=== PATIENT | female | born 1980 | race Caucasian/White ===

== ENCOUNTER 2017-01-01 02:59 | Emergency (ER) | payer OTHER ==
--- NOTE | 2017-01-01 07:52 | ED.REPORT ---
HPI-General Illness Date of Service Jan 01, 2017 ED Provider: Rich Mcfarland MD History of Present Illness: Patient is a 36 y.o. F with past medical history of methamphatamine abuse, alcohol abuse, reported bipolar disorder. She presents to ED with active methamphetamine intoxication, alcohol intoxication stating that she needs to detox. Patient stated that she is not from the area but has family in [place] whom she has been staying with, but currently lives with "two hollis guys." Patient said that she has "no family support, they are all trailer trash, I am trailer trash, I can't get clean because I have no support, I have called around everywhere and no one gives me a bed, the only people who get beds are the heroine junkies who have kids, all I have are my cats but I don't even have them here." Patient stated that her last use of meth was two hours prior to arrival at the ED and her last drink was at "last call." Patient reported that she has been drinking since the age of 16 and she currently drink 1 pint of hard alcohol every three to four days. Patient when on to state that "I am always like this, even when I am sober, I am an asshole, I just want a fucking bed and no one will give it to me, I don't want to go to the [facility] [facility], I dont want to kill my self or hurt anyone else, I just want to get clean or else I feel like I will get murdered, I have good intuition and I know that I will get murdered." Patient reports assocaited symptoms of anxiety, tremors, headache. Patient denies fever, chills, nausea, vomiting, palpatation, shortness of breath, auditory hallucination, visual hallucionations, IV drug use. Nursing Notes Stated Complaint: DETOX Nursing Notes Reviewed: Yes Allergies: Coded Allergies: No Known Allergies (Unverified , 01/01/17) Scheduled PRN Lorazepam (Lorazepam) 1 Mg Tablet 1 MG PO TID PRN PRN For Anxiety General Time Seen by MD: 04:15 Chief Complaint Other (Methamphetamine intoxication, ETOH intoxication) Sudden in Onset?: Yes Onset Occurred: Just prior to arrival Context of Onset: Amphetamine use, EtOH use Symptom Duration: Since onset Severity: Current: No pain currently Severity: Maximum: No pain Recent Healthcare: No recent doctor visit Past Medical History Past Medical History Polysubstance abuse methamphetamine abuse ETOH abuse Past Surgical History none reported Smoking History Current Every Day Smoker Social History none reported Alcohol Use: >5 per day Drug Use: Meth Review of Systems Full Review of Systems Constitutional: Denies: Chills, Fever Eyes: Reports: Blurred right, Denies: Blurred bilateral Respiratory: Denies: Dyspnea on exertion, Hemoptysis Cardiovascular: Reports: Palpitations, Denies: Chest pain, Syncope GI: Denies: Abdominal pain, Diarrhea, Nausea, Vomiting Psychiatric: Reports: Agitation, Anxiety, Denies: Hallucinations, auditory, Hallucinations, visual, Homicidal ideation , Suicidal ideation Complete sys rev & neg: except as marked. Physical Exam Vital Signs see paper chart Initial VS: Reviewed Head / Eyes: Atraumatic, Normocephalic, PERRL ENT: Mucous membranes moist, Conjunctiva normal, No scleral icterus Neck: Supple, Non-tender, Full range of motion Respiratory: Breath sounds normal, Clear to auscultation, No respiratory distress Cardiovascular: Regular rate & rhythm, Heart sounds normal, Intact distal pulses Abdomen / GI: Soft, Non-tender, No guarding, No rebound, No distention Behavior: Positive: Aggressive, Agitated, Anxious, Appears intoxicated, Tearful Appearance / Presentation: Positive: Hygiene poor, Intoxicated, Underweight Dental / Gums: Positive: Dentition poor Neurologic: Oriented X3, Speech NL, No motor deficits Movement Abnormality: Positive: Akathisia Abnormal Mood/Affect: Positive: Anxious, Flight of ideas, Inappropriate ( Patient exhibits manipulative behavior and splitting among ED staff), Irritable , Labile, Pressured speech Abnormal Thinking / Perception: Positive: Delusions - grandeur (I will write a letter to Vinnie to get a law passed to I dont have to be a junkie or have children to neglect to get treatment), Insight abnormal, Loose associations, Tangential thinking, Negative: Hallucinations, tactile, Suicidal, with plan Unable to Evaluate: Positive: Uncooperative (If I dont know where I will get a bed in the next 10 mintues I will not take any medication and I will leave) Re-Eval/Medical Decision Med Decision/Clinical Course Patient is a 36 y.o. with recent methamphetamine use and ETOH use, with reported polysubstance abuse, bipolar disorder. Patient actively intoxicated, no signs of current withdrawal. Manipulative and spitting behavior with ED providers and staff exhibited by patient consistent with borderline personality disorder. Vital signs stable at time of presentation. Patient's behavior at initial encounter is irratic, confrontational, manipulative. Patient stated multiple times during the interview that she needed to know immediately if she had an inpatient bed to get sober and detox or she would not comply with treatment and would leave. After initial encounter patient stated that either she would know immediately if she had a bed or she would leave, discussed with patient that we could not give an answer at present time as to whether a [facility]. Patient elected to leave AMA. Vital signs stable at time of depart. Intoxicated 36-year-old presents requesting hospital bed for detox. Arrangements are made to clear her for treatment at [facility]. She declined to wait for that. She was offered Ativan to help her to calm down and to deal with her methamphetamine and alcohol withdrawal, but declined that. She ultimately decided that she could not wait and departed the department. Discharge & Departure Primary Impression: Alcohol abuse Additional Impressions: Substance abuse Methamphetamine abuse Methamphetamine addiction Borderline personality disorder Disposition: AGAINST MEDICAL ADVICE Discharge Condition All VS Reviewed: Yes Condition: Stable Patient Instructions: Alcohol Intoxication (DC), Alcohol Withdrawal (DC), Methamphetamine Abuse (ED) Additional Instructions: During you visit to [facility] Emergency Department we conducted a history and physical exam, while monitored for signs of ETOH withdrawal. Your active intoxication and need for medical treatment do not meet criteria for safe discharge, you have decline medical intervention offered for methamphetamine intoxication and withdrawal from alcohol. By electing to discontinue care and leaving the facility you will be leaving against medical advice. Do not hesitate to call emergency services or your primary care physician if you experience any of the following. - High unrelenting fevers. - Uncontrolled vomiting. - Severe hypertension. - Syncope or loss of consciousness. - Chest pain or severe shortness of breath. - Thoughts of suicide - Thoughts of homicide Follow up with your primary care physician in 1-2 weeks time following your emergency department visit for medication checks and general well-being. Referrals: OTHER,PHYSICIAN (PCP) (Family) Attending Statement As attending of record for this patient, I conducted an independent history and physical examination, and agree with the documentation per the resident note above, and as amended. ELIZABETH FISHMAN DO Jan 01, 2017 07:51 Rich Mcfarland MD Jan 02, 2017 06:46
[2017-01-01] MEDS ORDERED: LORA1TAB PO (08:11)
== END 2017-01-01 05:30 ==
LOC: SED 02:59
DX: F10.10 Alcohol abuse, uncomplicated (principal); F15.20 Other stimulant dependence, uncomplicated; F60.3 Borderline personality disorder; R51 Headache; R25.1 Tremor, unspecified; F17.200 Nicotine dependence, unspecified, uncomplicated

== ENCOUNTER 2017-01-01 06:00 | Emergency (ER) | payer OTHER ==
[~2017-01-01] VITALS: Ht 160 cm; Wt 57.3 kg
--- NOTE | 2017-01-01 06:06 | ED.REPORT ---
HPI-Overdose/Alcohol Toxicity Date of Service Jan 01, 2017 ED Provider: Bernard Manning MD The patient is a 36 year old female who presents to the ED requesting detox from meth and alcohol. [facility] with [facility]. She was under the impression that the detox was at the hospital and now she has found out it is in [place]. She claims her last drink was 6 hours ago. She currently has a hangover, headache, reports dehydration and does not currently feel intoxicated. Pt denies cough, vomiting, fever, diarrhea, and suicidal ideation. She states she, "is making everyone run around for her and she is so tired." Nursing Notes Stated Complaint: DETOX Chief Complaint: Substance Abuse Nursing Notes Reviewed: Yes Allergies: Coded Allergies: No Known Allergies (Unverified , 01/01/17) Scheduled PRN Lorazepam (Lorazepam) 1 Mg Tablet 1 MG PO TID PRN PRN For Anxiety General Time Seen by Provider: 06:15 Chief Complaint Other (detox from methamphetamines and EtOH) Hx Obtained From: Patient Arrived By: Walk-in Onset Occurred: Just prior to arrival Symptom Duration: Since onset Severity: Current: No pain currently Recent Healthcare: No recent doctor visit, No recent hospitalization Similar Sx Previous: No Past Medical History Past Medical History denies Past Surgical History denies Smoking History Unknown if Ever Smoker Social History Alcohol Use: 1-3 per day Drug Use: Meth Ambulatory Status Independent Review of Systems Constitutional: Reports: Fatigue, Denies: Fever Respiratory: Denies: Non-productive cough GI: Denies: Diarrhea, Vomiting Neurologic: Reports: Headache Psychiatric: Denies: Suicidal ideation Complete sys rev & neg: except as marked. Physical Exam Initial Vital Signs Vital Signs (First) Date Time Temp Pulse Resp B/P Pulse Ox O2 Delivery O2 Flow Rate FiO2 01/01/17 06:07 36.2 94 18 128/88 98 Room Air Initial VS: Reviewed Head / Eyes: Atraumatic, Normocephalic, PERRL ENT: Mucous membranes moist, Conjunctiva normal, No scleral icterus Neck: Supple, Non-tender, Full range of motion Back: No CVA tenderness Extremities: Vascular intact, Neuro intact, No swelling, No tenderness Skin: Warm, Dry, No cyanosis Alertness: Positive: Sleeping but arousable Behavior: Positive: Anxious sobering from EtOH intoxication Respiratory / Chest: Atraumatic, Breath sounds NL, Breath sounds = bilat, No respiratory distress, No rales, No rhonchi, No wheezing Cardiovascular: Heart rate NL, Regular rhythm, Heart sounds NL, No gallop, No murmurs, No rubs Abdomen: Atraumatic, Soft, Non-tender, No guarding, No rebound, BS normoactive Neurologic: Speech NL, No motor deficits, No sensory deficits Psychiatric: Affect NL, Mood NL, Not suicidal, Not homicidal, No hallucinations , Cognitive function NL Re-Eval/Medical Decision Re-Evaluation/Progress : Time of Eval: 08:05 Patient Status: Condition improved, Mild relief Re-Evaluation/Progress Note: Pt rechecked. Pt is sobering from EtOH intoxication. She reports she wants to go [facility] with [facility]. After consult with [facility], they have a bed available for her and just need the standard paperwork. Patient is discharged and a cab called to take her to [facility]. F/U and RTER warnings given. All questions addressed. Counseled Regarding: Diagnosis, Lab results, Need for follow-up, When/why to return to ED Discharge & Departure Impression: Primary Impression: Substance abuse Additional Impression: Alcohol abuse Disposition: Home Discharge Condition All VS Reviewed: Yes Condition: Stable Patient Instructions: Methamphetamine Abuse (ED) Additional Instructions: I believe that you are medically stable for outpatient detoxification at [facility]. I do not believe that your alcohol level is greater than 250 but we do not have a way to assess that with a breathalyzer at this moment. You have declined blood alcohol level testing. [facility] directly [facility] on [facility] in [place]. Referrals: OTHER,PHYSICIAN (PCP) (Family) Scribe Attestation Portion of this note were transcribed by Vicente Carbone. I, Dr. Manning, personally performed the history, physical exam, and medical decision-making: I reviewed and confirmed the accuracy for the information in the transcribed note. Signed by: jose Dimas, 01/01/17 0800 Bernard Manning MD Jan 01, 2017 06:06 VICENTE CARBONE Jan 01, 2017 06:58
[2017-01-01 06:07] VITALS: BP 128/88; PULSE 94; RESP 18; O2SAT 98
[2017-01-01] MEDS ORDERED: LORA1TAB PO (08:11)
== END 2017-01-01 08:38 | disposition home or self-care (01) ==
LOC: SED 06:00
DX: F15.20 Other stimulant dependence, uncomplicated (principal); F10.10 Alcohol abuse, uncomplicated; R51 Headache; E86.0 Dehydration